=== PATIENT | male | born 1995 | race Caucasian/White ===

== ENCOUNTER 2017-09-16 14:07 | Emergency (ER) | payer OTHER, SELFPAY ==
--- NOTE | 2017-09-16 15:52 | CT ---
CT OF THE BRAIN WITHOUT CONTRAST: Date: 09/16/17 The ventricles are normal in size with no shift. No intracranial bleeding or extra-axial hematoma see n. There is no sign of mass, edema, or stroke. The skull appears intact, though a right zygomatic fra cture is noted. See CT facial bones dictation. The sphenoid sinus is clear, as are the mastoid air ce lls. IMPRESSION: No acute intracranial findings. POS: HOME
--- NOTE | 2017-09-16 15:53 | RAD ---
LEFT SHOULDER THREE VIEWS: Date: 09-16-17 FINDINGS: No fracture, dislocation, or AC joint widening was seen. The visible adjacent ribs appear intact, as does the scapula. IMPRESSION: No significant finding. POS: HOME
--- NOTE | 2017-09-16 15:55 | CT ---
CT OF THE FACIAL BONES WITHOUT CONTRAST: Date: 09-16-17 Axial slices were acquired followed by coronal and sagittal reconstructions. FINDINGS: There is a minimally depressed fracture of the right zygomatic arch. The orbit appears normal. A few lines seen in the lateral wall of the right orbit appear to be sutural in nature and reasonably symme trical with the opposite side. There is no sign of blow out fracture. The retroorbital areas appear n ormal. All paranasal sinuses are clear. There are no airfluid levels. The nasal bones appear intact. The mandible appears intact. IMPRESSION: Minimally depressed fracture of the right zygomatic arch. POS: HOME
--- NOTE | 2017-09-16 15:56 | CT ---
CT CERVICAL SPINE: Date: 09-16-17 Technique: Axial slices were acquired following trauma then coronal and sagittal reconstructions were done. FINDINGS: No fracture, dislocation, or disc abnormality was seen. There is no sign of central canal or foramina l stenosis at any level. There is mild loss of the normal cervical lordosis which may be due to muscl e spasm. The C1-2 dens distance is normal and the soft tissues are normal in thickness. The lung apic es were unremarkable. IMPRESSION: Aside from some straightening of the cervical spine, there were no acute traumatic findings. POS: HOME
== END 2017-09-16 15:38 | disposition home or self-care (01) ==
LOC: BURERS 14:07
DX: S02.40EA Zygomatic fracture, right side, initial encounter for closed fracture (principal); S43.402A Unspecified sprain of left shoulder joint, initial encounter; S05.11XA Contusion of eyeball and orbital tissues, right eye, initial encounter; F17.210 Nicotine dependence, cigarettes, uncomplicated; Y04.0XXA Assault by unarmed brawl or fight, initial encounter
CPT/HCPCS: 70450; 70486; 72125

== ENCOUNTER 2020-04-27 16:16 | Emergency (ER) | payer SELFPAY ==
[2020-04-27] MEDS ORDERED: Fluorescein Opthalmic Strip ONE (16:26)
[2020-04-27] MEDS ORDERED: Tetracaine 0.5% OPHTH SOLN/PF 4 ML BOT ONE (16:26)
== END 2020-04-27 17:18 | disposition home or self-care (01) ==
LOC: BURERS 16:16
DX: T15.11XA Foreign body in conjunctival sac, right eye, initial encounter (principal); F17.210 Nicotine dependence, cigarettes, uncomplicated
CPT/HCPCS: 67938

== ENCOUNTER 2021-04-25 05:51 | Emergency (ER) | payer OTHER, SELFPAY ==
[2021-04-25] MEDS ORDERED: Acetaminophen 500 MG TAB ONE (06:15)
[2021-04-25 14:53] LABS: SARS-CoV-2 PCR by NAA Not Detected (NotDetected)
== END 2021-04-25 06:25 | disposition home or self-care (01) ==
LOC: BURERS 05:51
DX: R50.9 Fever, unspecified (principal); R53.83 Other fatigue; R05.9 Cough, unspecified; M79.10 Myalgia, unspecified site; R53.81 Other malaise; Z20.822 Contact with and (suspected) exposure to COVID-19; F17.210 Nicotine dependence, cigarettes, uncomplicated
CPT/HCPCS: 99283; U0003; U0005